=== PATIENT | male | born 1940 | race Caucasian/White ===

== ENCOUNTER → 2017-01-26 | Outpatient (CLI) | payer MEDICARE, BC | LOC: MW.CHUR 16:15 | PROVIDERS: ATTEND Urology | DX: N40.0 Benign prostatic hyperplasia without lower urinary tract symptoms (principal); R35.1 Nocturia; R97.20 Elevated prostate specific antigen [PSA] | CPT/HCPCS: 36415; 84153; G0463 ==

== ENCOUNTER → 2017-02-17 | Outpatient (CLI) | payer MEDICARE, BC | LOC: MW.CHUR 08:00 | PROVIDERS: ATTEND Urology | DX: C61 Malignant neoplasm of prostate (principal) | CPT/HCPCS: 96372; J9217 ==

== ENCOUNTER 2019-10-03 06:34 | Day surgery (SDC) | payer MEDICARE, BC ==
[~2019-10-03 06:34] MED LIST: Lactated Ringers 1,000 ML IV SCH; Sodium Chloride 0.9% 10 ML SDV IV PRN; Sodium Chloride 0.9% 10 ML Syringe FLUSH PRN; Sodium Chloride 0.9% 2.5 ML Syringe FLUSH PRN; ceFAZolin 1 GM in Premix Bag 1 BAG IV ONE
[2019-10-03] MEDS ORDERED: fentaNYL 100 MCG/2 ML SDV ONE (07:06)
[2019-10-03] MEDS ORDERED: Propofol 200 MG/20 ML SDV ONE (07:06)
[2019-10-03] MEDS ORDERED: Midazolam 1 MG/ML 2 ML SDV ONE (07:07)
[2019-10-03] MEDS ORDERED: Ketorolac 30 MG/ML SDV ONE (07:08)
[2019-10-03] MEDS ORDERED: Ondansetron 4 MG/2 ML SDV ONE (07:08)
[2019-10-03] MEDS ORDERED: Glycopyrrolate 0.2 MG/ML SDV ONE (07:08)
[2019-10-03] MEDS ORDERED: Lidocaine 2% 5 ML SDV ONE (07:08)
--- NOTE | 2019-10-03 07:30 | PCM.PREANE ---
Preanesthetic Assessment - Anesthesia/Transfusion/Family Hx Anesthesia History: Prior Anesthesia Without Reaction Family History of Anesthesia Reaction: No Transfusion History: No Prior Transfusion(s) - Review of Systems General: No Symptoms Pulmonary: No Symptoms Cardiovascular: No Symptoms Gastrointestinal: No Symptoms Neurological: No Symptoms Other: Reports: None - Physical Assessment NPO Status Date: 10/02/19 Vital Signs: Last Vital Signs Temp 96.8 F 10/03/19 07:12 Pulse 60 10/03/19 07:12 Resp 16 10/03/19 07:12 BP 132/68 10/03/19 07:12 Pulse Ox 97 10/03/19 07:12 Height: 5 ft 7 in Weight: 83.915 kg ASA Class: 2 Mental Status: Alert & Oriented x3 Airway Class: Mallampati = 2 Dentition: Reports: Mckinley(s) ROM/Head Extension: Full Lungs: Clear to Auscultation, Normal Respiratory Effort Cardiovascular: Regular Rate, Regular Rhythm - Allergies Allergies/Adverse Reactions: Allergies Allergy/AdvReac Type Severity Reaction Status Date / Time doxycycline Allergy Rash Verified 09/30/19 09:10 latex Allergy Rash/from Verified 09/30/19 09:22 vazquez catheter tetracycline Allergy Rash Verified 09/30/19 09:10 - Anesthesia Plan Pre-Op Medication Ordered: None - Acknowledgements Anesthesia Type Planned: General Anesthesia Pt an Appropriate Candidate for the Planned Anesthesia: Yes Alternatives and Risks of Anesthesia Discussed w Pt/Guardian: Yes Pt/Guardian Understands and Agrees with Anesthesia Plan: Yes PreAnesthesia Questionnaire HEENT History: Reports: Hard of Hearing, Impaired Vision Other HEENT History: wears glasses, has aneudy hearing aids Cardiovascular History: Reports: High Cholesterol, Hypertension Respiratory History: Reports: None Gastrointestinal History: Reports: Colon Polyp Genitourinary History: Reports: Prostate Disorder Musculoskeletal History: Reports: Amputation Other Musculoskeletal History: amputation-tip of rt thumb, hx shattered leg 7 rubs, hx fx wrist and rx thumbs Neurological History: Reports: None Psychiatric History: Reports: None Endocrine/Metabolic History: Reports: Hypothyroidism Other Endocrine/Metabolic History: "prediabetic" Hematologic History: Reports: None Immunologic History: Reports: None Oncologic (Cancer) History: Reports: Prostate Dermatologic History: Reports: None - Past Surgical History Head Surgeries/Procedures: Reports: None Cardiovascular Surgical History: Reports: None Respiratory Surgical History: Reports: None GI Surgical History: Reports: Appendectomy, Colonoscopy Male Surgical History: Reports: TURP-Transurethral Resection of Prostate, Vasectomy, Other (See Below) Other Male Surgeries/Procedures: radiation for prostate cancer Endocrine Surgical History: Reports: None Neurological Surgical History: Reports: None Musculoskeletal Surgical History: Reports: Shoulder Surgery, Other (See Below) Other Musculoskeletal Surgeries/Procedures:: surgery to aneudy thumbs, rt rotator cuff repair Oncologic Surgical History: Reports: Other (See Below) Other Oncologic Surgeries/Procedures: radiation for prostate cancer Dermatological Surgical History: Reports: None - SUBSTANCE USE Smoking Status *Q: Never Smoker Recreational Drug Use History: No - HOME MEDS Home Medications: Home Meds Levothyroxine 100 mcg PO BEDTIME 10/24/15 [History] Multivitamin [Multi-Vitamin Daily] 1 tab PO DAILY 10/24/15 [History] Niacin 500 mg PO DAILY 10/24/15 [History] Fenofibrate Nanocrystallized [Tricor] 145 mg PO DAILY 09/30/19 [History] Garlic 1 tab PO DAILY 09/30/19 [History] amLODIPine [Norvasc] 5 mg PO BEDTIME 09/30/19 [History] - CURRENT (IN HOUSE) MEDS Current Meds: Current Medications Lactated Ringer's (Ringers, Lactated) 1,000 mls @ 100 mls/hr IV ASDIRECTED JOSIE Last Admin: 10/03/19 07:10 Dose: 100 mls/hr Sodium Chloride (Saline Flush) 10 ml FLUSH ASDIRECTED PRN PRN Reason: Keep Vein Open Sodium Chloride (Saline Flush) 2.5 ml FLUSH ASDIRECTED PRN PRN Reason: Keep Vein Open Sodium Chloride (Normal Saline) 10 ml IV ASDIRECTED PRN PRN Reason: IV Use Discontinued Medications Fentanyl (Sublimaze) Confirm Administered Dose 100 mcg .ROUTE .STK-MED ONE Stop: 10/03/19 07:07 Glycopyrrolate (Robinul) Confirm Administered Dose 0.2 mg .ROUTE .STK-MED ONE Stop: 10/03/19 07:09 Cefazolin Sodium/Dextrose 1 gm (/ Premix) 50 mls @ 100 mls/hr IV ONCALL ONE Stop: 10/03/19 00:30 Ketorolac Tromethamine (Toradol) Confirm Administered Dose 30 mg .ROUTE .STK- MED ONE Stop: 10/03/19 07:09 Lidocaine (Xylocaine-Mpf 2%) Confirm Administered Dose 5 ml .ROUTE .STK-MED ONE Stop: 10/03/19 07:09 Midazolam HCl (Versed 1 Mg/Ml) Confirm Administered Dose 2 mg .ROUTE .STK-MED ONE Stop: 10/03/19 07:08 Ondansetron HCl (Zofran) Confirm Administered Dose 4 mg .ROUTE .STK-MED ONE Stop: 10/03/19 07:09 Propofol (Diprivan 20 Ml) Confirm Administered Dose 200 mg .ROUTE .STK-MED ONE Stop: 10/03/19 07:07
[2019-10-03] MEDS ORDERED: ceFAZolin 1 GM Vial ONE (08:13)
[2019-10-03] MEDS ORDERED: Sodium Chloride 0.9% 20 ML ONE (08:13)
[2019-10-03] MEDS ORDERED: Phenylephrine/Normal Saline 100 MCG/ML 10 ML Syringe ONE (08:22)
[2019-10-03] MEDS ORDERED: fentaNYL 100 MCG/2 ML SDV IVPUSH PRN (08:59)
[2019-10-03] MEDS ORDERED: Furosemide 10 MG in Sodium Chloride 0.9% 50 ML IV ONE (09:20)
[2019-10-03] MEDS ORDERED: Furosemide 20 MG/2 ML VIAL IVPUSH ONE (09:30)
--- NOTE | 2019-10-03 09:45 | OR ---
SURGEON: Edward Hill M.D. DATE OF PROCEDURE: 10/03/2019 PREOPERATIVE DIAGNOSIS: Bladder neck contracture. POSTOPERATIVE DIAGNOSIS: Bladder neck contracture. OPERATION: Bladder neck resection. DESCRIPTION OF PROCEDURE: The patient was given general anesthesia. He was in dorsal lithotomy position, prepped and draped in sterile drapes. The 26-Albanian resectoscope was introduced in the urethra all the way to the neck of the bladder. The hot knife was then used to cut the neck of the bladder and then the resection was done. At the end of the resection, all points of bleeding were fulgurated. There were only two small areas of bleeding. The pieces were removed. A 16-Al[place]ian Walter catheter was introduced in the bladder and will be left in for the next 3 days. The patient tolerated the procedure well and was moved to the recovery room in good condition. ABHI / FRANCES /[id number]
--- NOTE | 2019-10-03 10:26 | PCM48HPAN ---
Post Anesthesia Note - EVALUATION WITHIN 48HRS OF ANESTHETIC Vital Signs in Normal Range: Yes Patient Participated in Evaluation: Yes Respiratory Function Stable: Yes Airway Patent: Yes Cardiovascular Function Stable: Yes Hydration Status Stable: Yes Pain Control Satisfactory: Yes Nausea and Vomiting Control Satisfactory: Yes Mental Status Recovered: Yes Vital Signs: Last Vital Signs Temp 97.5 F 10/03/19 09:10 Pulse 65 10/03/19 09:35 Resp 15 10/03/19 09:35 BP 146/73 H 10/03/19 09:35 Pulse Ox 93 L 10/03/19 09:35
--- NOTE | 2019-10-03 10:26 | PCM.POSTAN ---
POST ANESTHESIA ASSESSMENT - MENTAL STATUS Mental Status: Alert, Oriented - VITAL SIGNS Vital Signs: Last Vital Signs Temp 97.5 F 10/03/19 09:10 Pulse 65 10/03/19 09:35 Resp 15 10/03/19 09:35 BP 146/73 H 10/03/19 09:35 Pulse Ox 93 L 10/03/19 09:35 - RESPIRATORY Respiratory Status: Respiratory Rate WNL, Airway Patent, O2 Saturation Stable - CARDIOVASCULAR CV Status: Pulse Rate WNL, Blood Pressure Stable - GASTROINTESTINAL GI Status: No Symptoms - POST OP HYDRATION Hydration Status: Adequate & Stable
[2019-10-03 11:52] VITALS: BP 143/68; PULSE 64
[2019-10-03] MEDS ORDERED: amLODIPine 5 MG Tab PO SCH (21:00)
[2019-10-04] MEDS ORDERED: Levothyroxine 100 MCG Tab PO SCH (07:30)
[2019-10-04] MEDS ORDERED: Multivitamin Tab PO SCH (09:00)
[2019-10-04] MEDS ORDERED: Fenofibrate Nanocrystallized 145 MG PO SCH (09:00)
[2019-10-04] MEDS ORDERED: Niacin 500 MG Tab PO SCH (09:00)
== END 2019-10-03 11:10 | disposition home or self-care (01) ==
LOC: MW.SDS 06:34
PROVIDERS: ATTEND Urology
DX: N32.0 Bladder-neck obstruction (principal); I12.9 Hypertensive chronic kidney disease with stage 1 through stage 4 chronic kidney disease, or unspecified chronic kidney disease; N18.9 Chronic kidney disease, unspecified; E03.9 Hypothyroidism, unspecified; E78.2 Mixed hyperlipidemia; E78.00 Pure hypercholesterolemia, unspecified; Z79.899 Other long term (current) drug therapy; Z88.1 Allergy status to other antibiotic agents; Z91.040 Latex allergy status
CPT/HCPCS: 52500; 82962; A9270; J0690; J1885; J2001; J2250; J2370; J2405; J2704; J3010; J3490; J7120; 00912